=== PATIENT | male | born 1995 | race Caucasian/White ===

== ENCOUNTER → 2020-05-30 | Outpatient (CLI) | payer OTHER ==
--- NOTE | 2020-05-30 10:32 | Diagnostic Imaging Report ---
INDICATION: Left knee injury, pain COMPARISON: None available. TECHNIQUE: 3 radiographs left knee dated 05/30/2020. FINDINGS: No acute fracture or dislocation. No destructive osseous process. Joint spaces are well-maintained. No significant osteophyte formation. Tiny knee joint effusion. Mild cortical thickening and sclerosis involving the posterior aspect of the proximal tibial shaft. No associated periosteal reaction or cortical discontinuity. No suspicious radiopaque foreign body. IMPRESSION: Tiny knee joint effusion without acute fracture. Focal cortical thickening involving the posterior aspect of the proximal tibial shaft. This is favored to simply relate to a healing fibroxanthoma or simply be physiologic for the patient. However, if symptoms are referrable to this location, further evaluation should be considered as healing stress fracture versus additional sclerotic lesion such as osteoid osteoma would be additional considerations. If there is clinical concern for this region, then a CT or MRI of the region could be obtained. Dictated by: Dictated on workstation # [id number]
== END ==
LOC: RAD FS 09:50
PROVIDERS: ATTEND Nurse Practitioner
DX: S89.92XA Unspecified injury of left lower leg, initial encounter (principal); X58.XXXA Exposure to other specified factors, initial encounter
CPT/HCPCS: 73562